=== PATIENT | female | born 1985 | race Two or more races ===

== ENCOUNTER 2022-05-28 00:15 | Emergency (ER) | payer OTHER, SELFPAY ==
[2022-05-28 00:21] VITALS: BP 121/83; PULSE 81; RESP 16; TEMP 36.7; O2SAT 99; BMI 33.3
[2022-05-28 01:13] LABS: COVID-19 Test Negative (Negative); IDNOW Serial# 16C4AD1C; Strep A Nucleic Acid Negative (Negative)
[2022-05-28 02:52] VITALS: BP 139/69; PULSE 84; RESP 15; TEMP 36.6; O2SAT 100
[2022-05-28 05:09] VITALS: BP 136/78; PULSE 90; RESP 17; TEMP 37.1; O2SAT 100
[2022-05-28 05:56] LABS: Influenza A PCR NEGATIVE (Negative); Influenza B PCR NEGATIVE (Negative); Resp Syncy Virus RNA Qual PCR NEGATIVE (Negative); SARS COV2 PCR INHOUSE NEGATIVE (Negative)
--- NOTE | 2022-05-28 09:22 | ED_ITS ---
HPI - URI/Sore Throat General Chief Complaint: Upper Respiratory Symptoms Stated Complaint: Headache, Sore throat, body aches Time Seen by Provider: 05/28/22 04:47 Source: patient Mode of arrival: ambulatory Limitations: no limitations History of Present Illness HPI Narrative: Patient is a 37-year-old female presents emergency department for evaluation of headache, sore throat, body aches. Symptom onset 3 days ago. She reports that her significant other as well as her children are also ill with the same symptoms. Has not had prior COVID-19 testing. Has taken OTC Tylenol without significant improvement. Denies fevers, chills, chest pain, shortness of breath, difficulty breathing, nausea, vomiting, abdominal pain. Denies any past medical history. Related Data Allergies Allergy/AdvReac Type Severity Reaction Status Date / Time No Known Allergies Allergy Verified 05/28/22 05:05 Review of Systems Review of Systems: Constitutional: No fever. No No weakness. Positive fatigue. Positive body aches ENT/ Mouth: No Ear Pain, positive Nasal Congestion, positive sore throat, No Rhinorrhea, No Swallowing Difficulty Skin: No rash or itching. Cardiovascular: No chest pain. No palpitations. Respiratory: No shortness of breath. No cough. No sputum production. Gastrointestinal: No nausea. No vomiting. No diarrhea. No abdominal pain. Genitourinary: No burning micturition. No urinary frequency. Neurologic: Positive headache. No dizziness. No syncope. No numbness or tingling in the extremities. Musculoskeletal: No muscle pain. No back pain. No joint pain or stiffness. Yes all other systems are reviewed and are negative PMFSH Past Medical History Attestation statement: The following information was validated with the patient. Source: old records reviewed Social History Social History Advance Directives: No Advance Directives Information Provided: No Physical Exam Vital Signs: Vital Signs: Last Vital Signs Temp 98.7 F 05/28/22 05:09 Pulse 90 05/28/22 05:09 Resp 17 05/28/22 05:09 BP 136/78 05/28/22 05:09 Pulse Ox 100 05/28/22 05:09 O2 Del Method 05/28/22 05:09 BMI result Body Mass Index 33.3 Vital signs have been reviewed as normal and appeared to be correct. Blood pressure normal.? Heart rate normal.? Respiration rate normal. Temperature normal.? Oxygen saturation normal. Appearance: Alert.?Oriented to person, place and time. No acute distress.?Normal affect. Eyes: Pupils equal, round and reactive to light.? ENT: TM normal bilaterally. Pharynx normal.?? Neck: Normal inspection.? Neck supple.??No cervical adenopathy CVS: Heart sounds normal. Normal heart rate and rhythm.? Pulses normal.?? Respiratory: No respiratory distress.? Lung sounds clear to auscultation bilaterally?? Abdomen: Soft and non-tender. Normoactive bowel sounds. Skin: Skin warm and dry.? Normal skin color.? ? Extremities: No lower extremity edema.? Neuro: Moves all extremities spontaneously. Sensation intact bilaterally. No motor deficits. Ambulates with normal steady gait. Medical Decision Making Medical Decision Making MDM Narrative: Patient is a 37-year-old female with no reported past medical history, presenting for evaluation of upper respiratory symptoms. COVID-19 testing negative. Influenza testing negative. RSV testing negative. Strep testing negative. At this time history and physical exam not consistent with pneumonia. Well-appearing, nontoxic, afebrile, no tachycardia or tachypnea/hypoxia. Speaking clear full sentences, ambulatory with steady gait. Discussed conservative treatment including rest, hydration, Tylenol/ibuprofen as needed for fever and body aches, saline nasal spray, humidifier, [id number] cold medication. Advised to follow-up with primary care provider as needed, discussed reasons to return back to the emergency department. All questions were answered. Patient discharged home in stable condition. Provided with a return to work/school note. Differential Diagnoses: Differential diagnosis (COVID-19, influenza, RSV, strep pharyngitis, upper respiratory viral infection, pneumonia) Differential Diagnosis: The differential diagnosis associated with the patient?s presentation includes: Independent historian (e.g., spouse, EMS, friend): Independent historian (e.g., spouse, EMS, friend) Clinical information obtained from an independent historian. History obtained from or confirmed by: Spouse Tests considered but not performed: Tests Considered But Not Performed (chest x- ray was considered ultimately not performed, LSCTA, no increased work of breathing, low suspicion for pneumonia) The following testing was considered but ultimately not selected after discussion with patient/family. Discharge Plan Discharge Clinical Impression: Upper respiratory infection Patient Disposition: Home, Self-Care Instructions: Upper Respiratory Infection (ED) Additional Instructions: As we discussed, your testing for COVID, flu, RSV, and strep throat were all negative. Your symptoms are likely due to another viral infection, especially given that all of your family is currently ill with similar symptoms. Be sure to rest, stay well hydrated drinking plenty of fluids, eat small frequent meals. Tylenol/ibuprofen can be used as needed for fever/pain. [id number] cold medications may be helpful as well for symptoms. Saline nasal spray, humidifier may be helpful for nasal congestion. You may return to the emergency department with any new or worsening symptoms or concerns. Follow-up with your primary care provider as needed. Referrals: Physician,Treasure J [Primary Care Provider] - Stand Alone Forms: Work/School Release
[2022-05-28 09:27] VITALS: BP 121/65; PULSE 97; RESP 12; TEMP 37.1; O2SAT 99
[2022-05-28] MEDS: Acetaminophen 325 MG TABLET 975 MG PO (09:31)
== END 2022-05-28 09:57 | disposition home or self-care (01) ==
PROVIDERS: Emergency Medicine; Emergency Provider Emergency Medicine
DX: J06.9 Acute upper respiratory infection, unspecified (principal); R51.9 Headache, unspecified; M79.10 Myalgia, unspecified site; Z20.822 Contact with and (suspected) exposure to COVID-19; Z79.899 Other long term (current) drug therapy
CPT/HCPCS: 0241U; 87635; 87651; 99283; 99284